=== PATIENT | male | born 1990 | race Caucasian/White ===

== ENCOUNTER 2021-02-21 14:12 | Emergency (ER) | payer SELFPAY ==
[~2021-02-21] VITALS: Ht 172.7 cm; Wt 79.0 kg
[2021-02-21] MEDS ORDERED: IBUPROFEN 600MG TABLET PO STA (16:21)
[2021-02-21 16:34] VITALS: BP 146/28
[2021-02-21] MEDS ORDERED: IBUP-2029 MT (17:26)
== END 2021-02-21 17:46 | disposition home or self-care (01) ==
LOC: ER 14:12
DX: R07.89 Other chest pain (principal)
CPT/HCPCS: 71045; 93005; 99283